=== PATIENT | male | born 1960 | race Caucasian/White ===

== ENCOUNTER 2016-11-17 06:48 | Day surgery (SDC) | payer BC ==
[2016-11-15 15:59] VITALS: BMI 26.7
[2016-11-17] MEDS ORDERED: LACTATED RINGERS 1,000 ML IV ONE (07:07)
[2016-11-17 07:12] VITALS: RESP 16; TEMP 97.1
[2016-11-17] MEDS ORDERED: LACTATED RINGERS 1,000 ML IV SCH (07:13)
[2016-11-17 07:20] LABS: Glucose,Whole Blood 122 mg/dL (75-99)
[2016-11-17] MEDS ORDERED: PROPOFOL 10 MG/ML 20 ML VIAL IV ONE (07:35)
[2016-11-17] MEDS ORDERED: LIDOCAINE 1% INJ 10MG/ML (20 ML MDV) ONE (07:35)
--- NOTE | 2016-11-17 08:08 | P.PCN ---
Date of Procedure: 11/17/16 Procedure(s) Performed: BRIEF HISTORY: Patient is a 56-year-old pleasant white male, scheduled for an elective colonoscopy as a part of screening for colorectal neoplasia. PROCEDURE PERFORMED: Colonoscopy with biopsy. PREOPERATIVE DIAGNOSIS: Screening for colon cancer. IV sedation per Anesthesia. PROCEDURE: After informed consent was obtained, the patient, was brought into the endoscopy unit. IV conscious sedation was administered by Anesthesia under continuous monitoring. Initially the Olympus CF-160 flexible video colonoscope was then inserted in the rectum, gradually advanced into the cecum without any difficulty. Careful examination was performed as the scope was gradually being withdrawn. Ileocecal valve and the appendiceal orifice were visualized and appeared normal. Prep was excellent. Mucosa of the cecum, ascending colon, transverse colon, descending colon, sigmoid colon, and rectum appeared normal. In the rectum there were 2 polyps measuring 5-6 cm in size both of which were removed by biopsy. Retroflexion was performed in the rectum and no lesions were seen. The patient tolerated the procedure well. IMPRESSION: 2 polyps in the rectum measuring between 5-6 cm in size, status post removal by biopsy. Rest of the colon appeared normal. RECOMMENDATIONS: Findings of this examination were discussed with the patient as well as his family. He was advised to follow with the biopsy results. If the biopsy shows a tubular adenoma he can have a repeat colonoscopy in 5 years.
[2016-11-17 08:25] VITALS: BP 135/68; PULSE 62
== END 2016-11-17 09:14 | disposition home or self-care (01) ==
LOC: ORWHC2ENDO 06:48
PROVIDERS: ATTEND Internal Medicine Gastroenterology
DX: Z12.11 Encounter for screening for malignant neoplasm of colon (principal); D12.8 Benign neoplasm of rectum; E11.9 Type 2 diabetes mellitus without complications; Z79.899 Other long term (current) drug therapy
CPT/HCPCS: 88305; 45380; J2001; J2704; 99153

== ENCOUNTER → 2021-08-11 | Outpatient (CLI) | payer BC ==
--- NOTE | 2021-08-11 18:10 | XR ---
EXAMINATION TYPE: XR lumbar spine 3V DATE OF EXAM: 08/11/2021 Comparison: None Clinical History: 60-year-old male LBP DDD Findings: 5 lumbar type vertebral bodies. Mild degenerative disc disease lower lumbar spine with endplate spond ylosis and disc bulging. Vertebral body heights are preserved and alignment is maintained. Some strai ghtening of the normal lumbar lordosis. Impression: 1. Straightening of the normal lumbar lordosis could be positional or due to muscle spasm. 2. Mild degenerative disc disease lower lumbar spine. 3. No vertebral compression collapse.
== END | disposition home or self-care (01) ==
LOC: RADXRMAIN 13:04
PROVIDERS: ATTEND Psychiatry & Neurology Clinical Neurophysiology
DX: M51.36 Other intervertebral disc degeneration, lumbar region (principal)
CPT/HCPCS: 72100

== ENCOUNTER → 2022-02-28 | Outpatient (CLI) | payer BC ==
--- NOTE | 2022-03-01 01:45 | MR ---
EXAMINATION TYPE: MR brain wo/w con DATE OF EXAM: 02/28/2022 COMPARISON: None HISTORY: Weakness. Mini stroke. CONTRAST: Standard multiplanar, multisequence MRI departmental protocol images were obtained without contrast a nd with intravenous gadolinium contrast. FINDINGS: There is some cerebral cortical atrophy. There is no mass effect or midline shift. There is no sign o f intracranial hemorrhage. The diffusion images show no sign of an acute infarct. There is mild thinn ing of the corpus callosum. There is a wedge-shaped area of increased signal in the left frontal lobe that measures 3 cm on the T2 and FLAIR images. There is no pathologic enhancement. There is normal e nhancement of the venous sinuses. Sella turcica appears normal. There is no evidence of orbital mass. There are a few scattered small w richard matter high signal foci in both cerebral hemispheres that measure up to 4 mm. Total number is ap proximately 15. Calvarium appears intact. IMPRESSION: Left frontal lobe white matter and thomas matter signal changes consistent with an old infarct. There i s encephalomalacia left frontal lobe. Scattered white matter foci could relate to some microvascular ischemia. No evidence of an acute infa rct.
--- NOTE | 2022-03-01 07:44 | US ---
EXAMINATION TYPE: US carotid duplex BILAT DATE OF EXAM: 02/28/2022 COMPARISON: NONE CLINICAL HISTORY: I63.9 Cerebral infarction, unspecified. Patient states he had an episode of left ar m numbness. EXAM MEASUREMENTS: RIGHT: Peak Systolic Velocity (PSV) cm/sec ----- Right CCA: 101.0 ----- Right ICA: 111.0 ----- Right ECA: 158.0 ICA/CCA ratio: 1.1 RIGHT: End Diastole cm/sec ----- Right CCA: 23.4 ----- Right ICA: 13.1 ----- Right ECA: 20.3 LEFT: Peak Systolic Velocity (PSV) cm/sec ----- Left CCA: 89.0 ----- Left ICA: 107.0 ----- Left ECA: 140.0 ICA/CCA ratio: 1.2 LEFT: End Diastole cm/sec ----- Left CCA: 26.0 ----- Left ICA: 27.9 ----- Left ECA: 16.2 VERTEBRALS (direction of flow): Right Vertebral: Antegrade Left Vertebral: Antegrade Rhythm: Arrhythmia No plaque or significant stenosis. Elevated bilateral ECA velocities. IMPRESSION: No evidence for hemodynamically significant stenosis. Criteria for Assigning % of Stenosis / Diameter reduction (Estimation based on the indirect measurements of the internal carotid artery velocities (ICA PSV). 1. Normal (no stenosis)=ICA PSV < 125 cm/s: ratio < 2.0: ICA EDV<40 cm/s. 2. Less than 50% stenosis=ICA PSV < 125 cm/s: ratio < 2.0: ICA EDV<40 cm/s. 3. 50 to 69% stenosis=ICA PSV of 125 to 230 cm/s: ration 2.0 ? 4.0: ICA EDV 40-100 cm/s. 4. Greater than 70% stenosis to near occlusion= ICA PSV > 230 cm/s: ratio > 4.0: ICA EDV > 100 cm/s. 5. Near occlusion= ICA PSV velocities may be low or undetectable: variable ratio and ICA EDV. 6. Total occlusion=unable to detect flow.
--- NOTE | 2022-03-01 09:51 | CA ---
Transthoracic Echo Report Name: Stan Dalal Age: 61 Gender: M : 1960 Exam Date: 02/28/2022 14:56 Exam Location: [facility] Ht (in): 69 Wt (lb): 210 Ordering Physician: Nelda Abdi MD Attending/Referring Phys: [employer] Janet Paiz RDCS Procedure CPT: Indications: 163.9 Cardiac Hx: TIA Technical Quality: Good Contrast 1: N/A Total Dose (mL): Contrast 2: Total Dose (mL): MEASUREMENTS (Male / Female) Normal Values 2D ECHO LV Diastolic Diameter PLAX 5.4 cm 4.2 - 5.9 / 3.9 - 5.3 cm LV Systolic Diameter PLAX 4.2 cm IVS Diastolic Thickness 1.2 cm 0.6 - 1.0 / 0.6 - 0.9 cm LVPW Diastolic Thickness 1.3 cm 0.6 - 1.0 / 0.6 - 0.9 cm LV Relative Wall Thickness 0.5 RV Internal Dim ED PLAX 2.6 cm M-MODE Aortic Root Diameter MM 3.5 cm LA Systolic Diameter MM 4.5 cm LA Ao Ratio MM 1.3 MV E Point Septal Separation 0.4 cm AV Cusp Separation MM 2.1 cm DOPPLER MV Area PHT 3.9 cm Mitral E Point Velocity 44.8 cm/s Mitral A Point Velocity 89.4 cm/s Mitral E to A Ratio 0.5 MV Deceleration Time 196.2 ms MV E' Velocity 4.5 cm/s Mitral E to MV E' Ratio 10.0 TR Peak Velocity 146.5 cm/s TR Peak Gradient 8.6 mmHg Right Ventricular Systolic Press 13.6 mmHg FINDINGS Left Ventricle Mildly increased septal wall thickness. . Normal Left ventricular size, wall thickness, systolic function with no obvious regional wall motion abnormalities. Normal Left ventricular diastolic filling pattern EF 50-55% Right Ventricle Normal right ventricular size and function. Right Atrium Normal right atrial size. Left Atrium Mild left atrial dilatation. Mitral Valve Mild mitral regurgitation. Aortic Valve Trace aortic regurgitation Tricuspid Valve Mild tricuspid regurgitation. Pulmonic Valve Structurally normal pulmonic valve. Pericardium Normal pericardium. Aorta Normal aortic root dimension. CONCLUSIONS #1. Mild septal thickness of the left ventricle. LV function is preserved without any regional wall motion. Pulmonic disease. #2. Mild mitral and trace aortic regurgitation and mild tricuspid regurgitation. #3. No pericardial effusion. Previewed by: Dr. Juliet Shepherd MD (Electronically Signed) Final Date: 01 March 2022 09:49
== END | disposition home or self-care (01) ==
LOC: RADECHMAIN 14:39
PROVIDERS: ATTEND Psychiatry & Neurology Clinical Neurophysiology
DX: G93.89 Other specified disorders of brain (principal); R90.89 Other abnormal findings on diagnostic imaging of central nervous system; I08.3 Combined rheumatic disorders of mitral, aortic and tricuspid valves
CPT/HCPCS: 93306; 93880; 70553; A9585

== ENCOUNTER → 2022-02-28 | Outpatient (CLI) | payer BC | END | disposition home or self-care (01) | LOC: RADMRIMAIN 14:38 | PROVIDERS: ATTEND Psychiatry & Neurology Clinical Neurophysiology | DX: Z53.9 Procedure and treatment not carried out, unspecified reason (principal) ==

== ENCOUNTER → 2022-04-24 | Outpatient (CLI) | payer BC ==
--- NOTE | 2022-04-24 16:35 | CT ---
EXAMINATION TYPE: CT brain wo con DATE OF EXAM: 04/24/2022 COMPARISON: MRI dated 02/28/2022 HISTORY: F/U MINI STROKE CT DLP: 1248 mGycm Automated exposure control for dose reduction was used. TECHNIQUE: CT scan of the brain is performed without IV contrast administration. FINDINGS: Left frontal cortical and subcortical area of encephalomalacia likely representing sequela of previou s infarction or trauma. Surrounding gliotic changes. No acute intracranial hemorrhage. No gross acute cortical infarct. No midline shift, herniation or ve ntriculomegaly. Unremarkable basal cisterns, sella and CP angles. No gross space-occupying lesion, vasogenic edema or mass effect. Unremarkable orbits. Clear visualized paranasal sinuses and mastoid air cells. Unremarkable calvarial bones. IMPRESSION: Stable left frontal area of encephalomalacia and surrounding gliotic changes. No acute intracranial h emorrhage or gross acute cortical infarct. No new mass effect or gross space-occupying lesion.
== END | disposition home or self-care (01) ==
LOC: RADCTMAIN 15:40
PROVIDERS: ATTEND Nurse Practitioner Family
DX: G93.89 Other specified disorders of brain (principal)
CPT/HCPCS: 70450

== ENCOUNTER 2023-04-23 07:48 | Observation (INO) | payer BC ==
[2023-04-23] MEDS ORDERED: SODIUM CHLORIDE 0.9% 1,000 ML IV ONE ×2 (08:06→09:25)
--- NOTE | 2023-04-23 08:22 | ED ---
Altered Mental Status HPI - General Chief Complaint: Altered Mental Status Stated Complaint: hypotension, AMS Source: EMS Mode of arrival: EMS Limitations: altered mental status - History of Present Illness Initial Comments: 62-year-old male with past medical history of CVA and left-sided hemiparesis who presents to the emergency department for hypotension and altered mental status. Staff states that the patient is usually very aggressive with them. They awoke the patient this morning and he seemed pleasant. They checked his vital signs upon the patient have a blood pressure of 60/30. There are no lateralizing deficits. Patient transported without any complaint. is at bedside denies that the patient has had any issues. No reported bedsores. No fevers, chills or cough. No abdominal pain. No chest pain. Admits that he has been eating and drinking. No issues with urination. He does have incontinence. No other alleviating, precipitating or modifying factors - Related Data Home Medications Medication Instructions Recorded Confirmed ALPRAZolam [Xanax] 0.25 mg PO Q8H PRN 04/23/23 04/23/23 Acetaminophen [Tylenol 8 Hour] 1,300 mg PO Q4H PRN 04/23/23 04/23/23 Aspirin 81 mg PO DAILY@1700 04/23/23 04/23/23 Atorvastatin [Lipitor] 40 mg PO HS 04/23/23 04/23/23 Clopidogrel [Plavix] 75 mg PO DAILY@0800 04/23/23 04/23/23 DULoxetine HCL [Cymbalta] 60 mg PO DAILY@0800 04/23/23 04/23/23 Diclofenac Sodium Gel [Voltaren 1 applic TOPICAL TID@0800,1600,2100 04/23/23 04/23/23 Gel] Fruit & Vegetable Daily Cap 1 cap PO DAILY@0700 04/23/23 04/23/23 Gabapentin [Neurontin] 200 mg PO TID@0600,1400,2200 04/23/23 04/23/23 HYDROcodone/APAP 5-325MG [[place] 1 tab PO Q6H PRN 04/23/23 04/23/23 5-325] INSULIN LISPRO (HumaLOG) [humaLOG] 5 units SQ AC-TID 04/23/23 04/23/23 INSULIN LISPRO (HumaLOG) [humaLOG] See Protocol SQ ACHS 04/23/23 04/23/23 Insulin Detemir (Levemir) [Levemir] 10 units SQ BID@0800,1700 04/23/23 04/23/23 Ipratropium-Albuterol Nebulize 3 ml INHALATION RT-QID PRN 04/23/23 04/23/23 [Duoneb 0.5 mg-3 mg/3 ml Soln] Mag Hydrox/Al Hydrox/Simeth 30 ml PO Q6H PRN 04/23/23 04/23/23 [Maalox] Magnesium Hydroxide [Milk of 7,200 mg PO DAILY PRN 04/23/23 04/23/23 Magnesia Concentrate] Melatonin 3 mg PO HS 04/23/23 04/23/23 Melatonin 5 mg PO HS 04/23/23 04/23/23 Na Phos,M-B/Na Phos,Di-Ba [Fleet 133 ml RECTAL DAILY PRN 04/23/23 04/23/23 Adult] Natural Tears 2 drops BOTH EYES Q12H PRN 04/23/23 04/23/23 Pantoprazole [Protonix] 40 mg PO DAILY@0804/23/23 04/23/23 Sennosides [Senokot] 8.6 mg PO BID@0800,169904/23/23 04/23/23 Tamsulosin [Flomax] 0.4 mg PO HS 04/23/23 04/23/23 amLODIPine [Norvasc] 5 mg PO DAILY@0804/23/23 04/23/23 bisacodyL [Dulcolax] 10 mg RECTAL DAILY PRN 04/23/23 04/23/23 carvediloL [Coreg] 12.5 mg PO BID@0800,0 04/23/23 04/23/23 guaiFENesin [guaiFENesin Oral 200 mg PO Q4H PRN 04/23/23 04/23/23 Solution] levETIRAcetam [Keppra] 500 mg PO BID@0800,0 04/23/23 04/23/23 lisinopriL [Zestril] 10 mg PO DAILY@1700 04/23/23 04/23/23 polyethylene glycoL 3350 [Miralax] 17 gm PO DAILY@0800 04/23/23 04/23/23 Allergies Allergy/AdvReac Type Severity Reaction Status Date / Time No Known Allergies Allergy Verified 04/23/23 08:30 Review of Systems ROS Statement: Those systems with pertinent positive or pertinent negative responses have been documented in the HPI. ROS Other: All systems not noted in ROS Statement are negative. Past Medical History Past Medical History: CVA/TIA, Diabetes Mellitus, Liver Disease Additional Past Medical History / Comment(s): hx. Hep. C History of Any Multi-Drug Resistant Organisms: None Reported Past Surgical History: Orthopedic Surgery, Tonsillectomy Additional Past Surgical History / Comment(s): bone spur removed from shoulde r,colonoscopy Past Anesthesia/Blood Transfusion Reactions: No Reported Reaction Past Alcohol Use History: None Reported Past Drug Use History: None Reported - Past Family History Mother Family Medical History: Cancer General Exam Limitations: altered mental status Course Vital Signs 04/23/23 04/23/23 04/23/23 07:50 08:57 09:36 Temperature 98.2 F Pulse Rate 56 L 55 L 55 L Respiratory 18 18 18 Rate Blood Pressure 83/57 88/51 102/65 O2 Sat by Pulse 98 100 95 Oximetry 04/23/23 11:11 Temperature Pulse Rate 56 L Respiratory Rate Blood Pressure 97/68 O2 Sat by Pulse 95 Oximetry Medical Decision Making - Medical Decision Making Was pt. sent in by a medical professional or institution ([facility], OCCUPATIONAL THERAPY TEACHER, urgent care, hospital, or fdc...) When possible be specific @ -[No] Did you speak to anyone other than the patient for history (EMS, parent, family, police, friend...)? What history was obtained from this source @ -[No] Did you review nursing and triage notes (agree or disagree)? Why? @ -[I reviewed and agree with nursing and triage notes] Were old charts reviewed (outside hosp., previous admission, EMS record, old EKG, old radiological studies, urgent care reports/EKG's, fdc records)? Report findings @ -[No old charts were reviewed] Differential Diagnosis (chest pain, altered mental status, abdominal pain women, abdominal pain men, vaginal bleeding, weakness, fever, dyspnea, syncope, headac he, dizziness, GI bleed, back pain, seizure, CVA, palpatations, mental health, musculoskeletal)? @ -[not applicable] EKG interpreted by me (3pts min.). @ -Yes and demonstrates sinus bradycardia with a rate of 53. WV interval 203. QRS 98. QTC of 405. No acute ST segment elevations or depressions X-rays interpreted by me (1pt min.). @ -[None done] CT interpreted by me (1pt min.). @ -[None done] U/S interpreted by me (1pt. min.). @ -[None done] What testing was considered but not performed or refused? (CT, X-rays, U/S, labs)? Why? @ -[None] What meds were considered but not given or refused? Why? @ -[None] Did you discuss the management of the patient with other professionals (professionals i.e. , PA, OCCUPATIONAL THERAPY TEACHER, lab, RT, psych nurse, social worker delinquency prevention, door to door selling agent, teacher, bsa officer, patient case coordinator)? Give summary @ -[No] Was smoking cessation discussed for >3mins.? @ -[No] Was critical care preformed (if so, how long)? @ -[No] Were there social determinants of health that impacted care today? How? (Homelessness, low income, unemployed, alcoholism, drug addiction, transportation, low edu. Level, literacy, decrease access to med. care, long-term, rehab)? @ -[No] Was there de-escalation of care discussed even if they declined (Discuss DNR or withdrawal of care, Hospice)? DNR status @ -[No] What co-morbidities impacted this encounter? (DM, HTN, Smoking, COPD, CAD, Cancer, CVA, ARF, Chemo, Hep., AIDS, mental health diagnosis, sleep apnea, morbid obesity)? @ -[None] Was patient admitted / discharged? Hospital course, mention meds given and route, prescriptions, significant lab abnormalities, going to OR and other pertinent info. @ -Upon arrival patient is placed in a trauma 2. There are history and physical exam was performed. Patient is given a 2 L bolus of normal saline and does have improvement in his blood pressure. Laboratory studies are conducted and reviewed. Creatinine is 2.3. Patient has normal kidney function at baseline of 1. He is started on 130 mL of normal saline per hour. Chest x-ray demonstrates no evidence for acute process. CT of the brain demonstrates multiple old-appearing infarcts. Indeterminate age subcortical white matter change posterior right frontal lobe. Renal ultrasound is ordered. Recommended admission. Spoke with Dr. Dick who agreed to admit the patient. He is currently awaiting a bed on the floor in stable condition Undiagnosed new problem with uncertain prognosis? @ -[No] Drug Therapy requiring intensive monitoring for toxicity (Heparin, Nitro, Insulin, Cardizem)? @ -[No] Were any procedures done? @ -[No] Diagnosis/symptom? @ -[default] Acute, or Chronic, or Acute on Chronic? @ -[default] Uncomplicated (without systemic symptoms) or Complicated (systemic symptoms)? @ -[default] Side effects of treatment? @ -[No] Exacerbation, Progression, or Severe Exacerbation? @ -[No] Poses a threat to life or bodily function? How? (Chest pain, [place], ND, pneumonia, PE, COPD, DKA, ARF, appy, cholecystitis, CVA, Diverticulitis, Homicidal, Suicidal, threat to staff... and all critical care pts) @ -[No] - Lab Data Result diagrams: 04/23/23 08:09 04/23/23 08:09 Lab Results 04/23/23 04/23/23 04/23/23 Range/Units 08:09 08:09 08:09 WBC 6.1 (3.8-10.6) k/uL RBC 4.31 (4.30-5.90) m/uL Hgb 13.0 (13.0-17.5) gm/dL Hct 38.9 L (39.0-53.0) % MCV 90.3 (80.0-100.0) fL MCH 30.1 (25.0-35.0) pg MCHC 33.4 (31.0-37.0) g/dL RDW 13.5 (11.5-15.5) % Plt Count 123 L (150-450) k/uL MPV 7.8 Neutrophils % 67 % Lymphocytes % 22 % Monocytes % 7 % Eosinophils % 2 % Basophils % 0 % Neutrophils # 4.1 (1.3-7.7) k/uL Lymphocytes # 1.4 (1.0-4.8) k/uL Monocytes # 0.5 (0-1.0) k/uL Eosinophils # 0.1 (0-0.7) k/uL Basophils # 0.0 (0-0.2) k/uL PT 11.6 (9.0-12.0) sec INR 1.1 (<1.2) APTT 21.0 L (22.0-30.0) sec Sodium 137 (137-145) mmol/L Potassium 4.6 (3.5-5.1) mmol/L Chloride 105 (98-107) mmol/L Carbon Dioxide 24 (22-30) mmol/L Anion Gap 8 mmol/L BUN 33 H (9-20) mg/dL Creatinine 2.39 H (0.66-1.25) mg/dL Est GFR (CKD-EPI)AfAm 32 (>60 ml/min/1.73 sqM) Est GFR (CKD-EPI)NonAf 28 (>60 ml/min/1.73 sqM) Glucose 121 H (74-99) mg/dL Osmolality (280-301) mosm/kg Plasma Lactic Acid Felix (0.7-2.0) mmol/L Calcium 8.4 (8.4-10.2) mg/dL Total Bilirubin 0.7 (0.2-1.3) mg/dL AST 20 (17-59) U/L ALT 21 (4-49) U/L Alkaline Phosphatase 66 (38-126) U/L Troponin I (0.000-0.034) ng/mL Total Protein 5.9 L (6.3-8.2) g/dL Albumin 3.3 L (3.5-5.0) g/dL Urine Color Urine Appearance (Clear) Urine pH (5.0-8.0) Ur Specific [place] (1.001-1.035) Urine Protein (Negative) Urine Glucose (UA) (Negative) Urine Ketones (Negative) Urine Blood (Negative) Urine Nitrite (Negative) Urine Bilirubin (Negative) Urine Urobilinogen (<2.0) mg/dL Ur Leukocyte Esterase (Negative) Urine RBC (0-5) /hpf Urine WBC (0-5) /hpf Ur Squamous Epith Cells (0-4) /hpf Urine Bacteria (None) /hpf Urine Mucus (None) /hpf 04/23/23 04/23/23 04/23/23 Range/Units 08:09 08:09 08:09 WBC (3.8-10.6) k/uL RBC (4.30-5.90) m/uL Hgb (13.0-17.5) gm/dL Hct (39.0-53.0) % MCV (80.0-100.0) fL MCH (25.0-35.0) pg MCHC (31.0-37.0) g/dL RDW (11.5-15.5) % Plt Count (150-450) k/uL MPV Neutrophils % % Lymphocytes % % Monocytes % % Eosinophils % % Basophils % % Neutrophils # (1.3-7.7) k/uL Lymphocytes # (1.0-4.8) k/uL Monocytes # (0-1.0) k/uL Eosinophils # (0-0.7) k/uL Basophils # (0-0.2) k/uL PT (9.0-12.0) sec INR (<1.2) APTT (22.0-30.0) sec Sodium (137-145) mmol/L Potassium (3.5-5.1) mmol/L Chloride (98-107) mmol/L Carbon Dioxide (22-30) mmol/L Anion Gap mmol/L BUN (9-20) mg/dL Creatinine (0.66-1.25) mg/dL Est GFR (CKD-EPI)AfAm (>60 ml/min/1.73 sqM) Est GFR (CKD-EPI)NonAf (>60 ml/min/1.73 sqM) Glucose (74-99) mg/dL Osmolality (280-301) mosm/kg Plasma Lactic Acid Felix 1.2 (0.7-2.0) mmol/L Calcium (8.4-10.2) mg/dL Total Bilirubin (0.2-1.3) mg/dL AST (17-59) U/L ALT (4-49) U/L Alkaline Phosphatase (38-126) U/L Troponin I <0.012 (0.000-0.034) ng/mL Total Protein (6.3-8.2) g/dL Albumin (3.5-5.0) g/dL Urine Color Yellow Urine Appearance Cloudy (Clear) Urine pH 5.0 (5.0-8.0) Ur Specific [place] 1.018 (1.001-1.035) Urine Protein Trace H (Negative) Urine Glucose (UA) Negative (Negative) Urine Ketones Negative (Negative) Urine Blood Negative (Negative) Urine Nitrite Negative (Negative) Urine Bilirubin Negative (Negative) Urine Urobilinogen 2.0 (<2.0) mg/dL Ur Leukocyte Esterase Small H (Negative) Urine RBC <1 (0-5) /hpf Urine WBC 2 (0-5) /hpf Ur Squamous Epith Cells <1 (0-4) /hpf Urine Bacteria Few H (None) /hpf Urine Mucus Rare H (None) /hpf 04/23/23 Range/Units 08:09 WBC (3.8-10.6) k/uL RBC (4.30-5.90) m/uL Hgb (13.0-17.5) gm/dL Hct (39.0-53.0) % MCV (80.0-100.0) fL MCH (25.0-35.0) pg MCHC (31.0-37.0) g/dL RDW (11.5-15.5) % Plt Count (150-450) k/uL MPV Neutrophils % % Lymphocytes % % Monocytes % % Eosinophils % % Basophils % % Neutrophils # (1.3-7.7) k/uL Lymphocytes # (1.0-4.8) k/uL Monocytes # (0-1.0) k/uL Eosinophils # (0-0.7) k/uL Basophils # (0-0.2) k/uL PT (9.0-12.0) sec INR (<1.2) APTT (22.0-30.0) sec Sodium (137-145) mmol/L Potassium (3.5-5.1) mmol/L Chloride (98-107) mmol/L Carbon Dioxide (22-30) mmol/L Anion Gap mmol/L BUN (9-20) mg/dL Creatinine (0.66-1.25) mg/dL Est GFR (CKD-EPI)AfAm (>60 ml/min/1.73 sqM) Est GFR (CKD-EPI)NonAf (>60 ml/min/1.73 sqM) Glucose (74-99) mg/dL Osmolality 295 (280-301) mosm/kg Plasma Lactic Acid Felix (0.7-2.0) mmol/L Calcium (8.4-10.2) mg/dL Total Bilirubin (0.2-1.3) mg/dL AST (17-59) U/L ALT (4-49) U/L Alkaline Phosphatase (38-126) U/L Troponin I (0.000-0.034) ng/mL Total Protein (6.3-8.2) g/dL Albumin (3.5-5.0) g/dL Urine Color Urine Appearance (Clear) Urine pH (5.0-8.0) Ur Specific [place] (1.001-1.035) Urine Protein (Negative) Urine Glucose (UA) (Negative) Urine Ketones (Negative) Urine Blood (Negative) Urine Nitrite (Negative) Urine Bilirubin (Negative) Urine Urobilinogen (<2.0) mg/dL Ur Leukocyte Esterase (Negative) Urine RBC (0-5) /hpf Urine WBC (0-5) /hpf Ur Squamous Epith Cells (0-4) /hpf Urine Bacteria (None) /hpf Urine Mucus (None) /hpf Disposition Clinical Impression: XIAO (acute kidney injury), Hypotension Disposition: ADMITTED IP TO THIS [facility] Condition: Stable Is patient prescribed a controlled substance at d/c from ED?: No Time of Disposition: 09:50 Decision to Admit Reason: Admit from EC Decision Date: 04/23/23 Decision Time: 09:51
[2023-04-23 08:26] LABS: Basophils % (A) 0 %; Eosinophils # (A) 0.1 k/uL (0-0.7); Eosinophils % (A) 2 %; HCT 38.9 % (39.0-53.0); Lymphocytes # (A) 1.4 k/uL (1.0-4.8); Lymphocytes % (A) 22 %; MCH 30.1 pg (25.0-35.0); MCHC 33.4 g/dL (31.0-37.0); MCV 90.3 fL (80.0-100.0); Mean Platelet Volume 7.8; Monocytes # (A) 0.5 k/uL (0-1.0); Monocytes % (A) 7 %; Neutrophils # (A) 4.1 k/uL (1.3-7.7); Neutrophils % (A) 67 %; Platelet Count 123 k/uL (150-450); RBC 4.31 m/uL (4.30-5.90); RDW 13.5 % (11.5-15.5); WBC 6.1 k/uL (3.8-10.6)
--- NOTE | 2023-04-23 08:28 | XR ---
EXAMINATION TYPE: XR chest 2V DATE OF EXAM: 04/23/2023 COMPARISON: 07/08/22 HISTORY: Shortness of breath TECHNIQUE: Frontal and lateral views of the chest are obtained. FINDINGS: Scattered senescent parenchymal changes noted. No evidence for infiltrate. No evidence for atelectasis. Heart size is stable. Mediastinal structures are stable and grossly unremarkable. No evidence for hilar prominence. Degenerative changes dorsal spine. IMPRESSION: 1. No evidence for acute pulmonary disease.
--- NOTE | 2023-04-23 08:38 | CT ---
EXAMINATION TYPE: CT brain wo con DATE OF EXAM: 04/23/2023 COMPARISON: 07/08/2022 INDICATION: ams DLP: 1231.4 mGycm, Automated exposure control for dose reduction was used. CONTRAST: None CT of the brain is performed utilizing 3 mm thick sections through the posterior fossa and 3 mm thick sections through the remaining calvarium. Study is performed within 24 hours of arrival to the hosp ital. No abnormal hyperdensity is present to suggest an acute intracranial hemorrhage. No mass lesion is evident. There is subcortical hypodensity within the posterior right frontal lobe, series 2032, image 45. This is indeterminate in age. There are several old appearing infarcts including along the medial left frontal lobe near the vertex , the right parietal occipital watershed region left inferior frontal lobe. Ex vacuo effect is eviden t on the lateral ventricles. Ventricles and sulci are prominent for the patient age. Paranasal sinuses and mastoid air cells within the [id number] are clear. IMPRESSIONS: 1. Multiple bilateral old appearing infarcts. These however were not evident on the comparison stud y of 07/08/2022. 2. Indeterminant age subcortical white matter change posterior right frontal lobe. 3. Consider follow-up MRI.
[2023-04-23 08:52] LABS: ALT 21 U/L (4-49); AST 20 U/L (17-59); African American GFR (CKD) 32 (>60 ml/min/1.73 sqM); Albumin 3.3 g/dL (3.5-5.0); Alkaline Phosphatase 66 U/L (38-126); Anion Gap 8 mmol/L; Blood Urea Nitrogen 33 mg/dL (9-20); Calcium 8.4 mg/dL (8.4-10.2); Carbon Dioxide 24 mmol/L (22-30); Chloride 105 mmol/L (98-107); Glucose 121 mg/dL (74-99); Non-African American GFR(CKD) 28 (>60 ml/min/1.73 sqM); Potassium 4.6 mmol/L (3.5-5.1); Sodium 137 mmol/L (137-145); Total Bilirubin 0.7 mg/dL (0.2-1.3); Total Protein 5.9 g/dL (6.3-8.2)
[2023-04-23 08:54] LABS: INR 1.1 (<1.2); Prothrombin Time 11.6 sec (9.0-12.0)
[2023-04-23 09:00] LABS: Appearance,Urine Cloudy (Clear); Bacteria,Urine Few /hpf; Bilirubin,Urine Negative (Negative); Blood,Urine Negative (Negative); Color,Urine Yellow; Glucose,Urine (UA) Negative (Negative); Ketones,Urine Negative (Negative); Leukocyte Esterase,Urine Small (Negative); Mucus,Urine Rare /hpf; Nitrite,Urine Negative (Negative); Protein,Urine Trace (Negative); RBC,Urine <1 /hpf (0-5); Specific Gravity,Urine 1.018 (1.001-1.035); Squamous Epithelial Cell,Urine <1 /hpf (0-4); WBC,Urine 2 /hpf (0-5)
[2023-04-23] MEDS ORDERED: NALOXONE 0.4 MG/ML 1 ML VIAL IV PRN (09:51)
[2023-04-23] MEDS ORDERED: IPRATROPIUM-ALBUTEROL 3 ML NEB INHALATION PRN (09:55)
[2023-04-23] MEDS: SODIUM CHLORIDE 0.9% 1,000 ML IV SCH ×2 (10:54→19:20)
--- NOTE | 2023-04-23 10:54 | US ---
EXAMINATION TYPE: US renals and bladder DATE OF EXAM: 04/23/2023 COMPARISON: NONE CLINICAL INDICATION: Male, 62 years old with history of leodan; hypotensive today, leodan, patient unrespon sive during exam EXAM MEASUREMENTS: Right Kidney: 10.8 x 5.3 x 6.3 cm Left Kidney: 10.2 x 4.5 x 6.5 cm Right Kidney: No hydronephrosis or masses seen Left Kidney: No hydronephrosis or masses seen Bladder: 2.0 x 1.5cm echogenic posterior area may represent normal anatomy versus other etiology There is no evidence for hydronephrosis at this point in time. No nephrolithiasis is seen. No harjeet s are identified. Bilateral ureteral jets are seen. IMPRESSION: Nonspecific echogenic focus posterior dependent urinary bladder.
--- NOTE | 2023-04-23 11:42 | P.HPIM ---
History of Present Illness 62-year-old male was sent in because of hypotension. is at bedside. Patient is on multivitamin his medications patient/ is unsure whether he was started on any new pressure medications. Patient is also found to be in acute renal failure with serum creatinine going up to 2.39 because of which patient is being admitted with IV fluids. Patient appears to be alert oriented 3 patient had history of recent stroke with hemorrhagic conversion with chronic weakness in the left side and hemiparesis on the left side. REVIEW OF SYSTEMS: CONSTITUTIONAL: No fever, no malaise, no fatigue. HEENT: No recent visual problems or hearing problems. Denied any sore throat. CARDIOVASCULAR: No chest pain, orthopnea, PND, no palpitations, no syncope. PULMONARY: No shortness of breath, no cough, no hemoptysis. GASTROINTESTINAL: No diarrhea, no nausea, no vomiting, no abdominal pain. NEUROLOGICAL: No headachesHEMATOLOGICAL: Denies any bleeding or petechiae. GENITOURINARY: Denies any burning micturition, frequency, or urgency. MUSCULOSKELETAL/RHEUMATOLOGICAL: Denies any joint pain, swelling, or any muscle pain. ENDOCRINE: Denies any polyuria or polydipsia. The rest of the 14-point review of systems is negative. PHYSICAL EXAMINATION: GENERAL: The patient is alert and oriented x3, not in any acute distress. Well developed, well nourished. HEENT: Pupils are round and equally reacting to light. EOMI. No scleral icterus. No conjunctival pallor. Normocephalic, atraumatic. No pharyngeal erythema. No thyromegaly. CARDIOVASCULAR: S1 and S2 present. No murmurs, rubs, or gallops. PULMONARY: Chest is clear to auscultation, no wheezing or crackles. ABDOMEN: Soft, nontender, nondistended, normoactive bowel sounds. No palpable organomegaly. MUSCULOSKELETAL: No joint swelling or deformity. EXTREMITIES: No cyanosis, clubbing, or pedal edema. NEUROLOGICAL: Gross neurological examination did not reveal any new focal deficits. Hemiparesis of a left-sided SKIN: No rashes. Assessment and plan -Hypotension probably secondary to multiple antibodies medications all of which will be held at this time. Patient is also on ZEUS inhibitor. -Acute renal failure probably acute tubular necrosis secondary to hypotension holding of aneurysm medications patient was started on IV fluids -Recent CVA cerebral vascular accident initially ischemic followed by hemorrhagic conversion, supportive care, patient is on prophylactic seizure medications -Type 2 diabetes mellitus: Sliding scale for now along with oral medications as patient is unable to deferred insulin at this time. -Hypertension patient is presently hypotensive Benign prostatic hypertrophy -Diabetic peripheral neuropathy -Depression -Hyperlipidemia DVT prophylaxis: Subcutaneous heparin Past Medical History Past Medical History: CVA/TIA, Diabetes Mellitus, Liver Disease Additional Past Medical History / Comment(s): hx. Hep. C History of Any Multi-Drug Resistant Organisms: None Reported Past Surgical History: Orthopedic Surgery, Tonsillectomy Additional Past Surgical History / Comment(s): bone spur removed from shoulder,colonoscopy Past Anesthesia/Blood Transfusion Reactions: No Reported Reaction Past Alcohol Use History: None Reported Past Drug Use History: None Reported - Past Family History Mother Family Medical History: Cancer Medications and Allergies Home Medications Medication Instructions Recorded Confirmed Type ALPRAZolam [Xanax] 0.25 mg PO Q8H PRN 04/23/23 04/23/23 History Acetaminophen [Tylenol 8 Hour] 1,300 mg PO Q4H PRN 04/23/23 04/23/23 History Aspirin 81 mg PO DAILY@1700 04/23/23 04/23/23 History Atorvastatin [Lipitor] 40 mg PO HS 04/23/23 04/23/23 History Clopidogrel [Plavix] 75 mg PO DAILY@0800 04/23/23 04/23/23 History DULoxetine HCL [Cymbalta] 60 mg PO DAILY@0800 04/23/23 04/23/23 History Diclofenac Sodium Gel [Voltaren 1 applic TOPICAL TID@0800,1600,2100 04/23/23 04/23/23 History Gel] Fruit & Vegetable Daily Cap 1 cap PO DAILY@0700 04/23/23 04/23/23 History Gabapentin [Neurontin] 200 mg PO TID@0600,1400,2200 04/23/23 04/23/23 History HYDROcodone/APAP 5-325MG [[place] 1 tab PO Q6H PRN 04/23/23 04/23/23 History 5-325] INSULIN LISPRO (HumaLOG) [humaLOG] 5 units SQ AC-TID 04/23/23 04/23/23 History INSULIN LISPRO (HumaLOG) [humaLOG] See Protocol SQ ACHS 04/23/23 04/23/23 History Insulin Detemir (Levemir) [Levemir] 10 units SQ BID@0800,1700 04/23/23 04/23/23 History Ipratropium-Albuterol Nebulize 3 ml INHALATION RT-QID PRN 04/23/23 04/23/23 History [Duoneb 0.5 mg-3 mg/3 ml Soln] Mag Hydrox/Al Hydrox/Simeth 30 ml PO Q6H PRN 04/23/23 04/23/23 History [Maalox] Magnesium Hydroxide [Milk of 7,200 mg PO DAILY PRN 04/23/23 04/23/23 History Magnesia Concentrate] Melatonin 3 mg PO HS 04/23/23 04/23/23 History Melatonin 5 mg PO 04/23/23 04/23/23 History Na Phos,M-B/Na Phos,Di-Ba [Fleet 133 ml RECTAL DAILY PRN 04/23/23 04/23/23 History Adult] Natural Tears 2 drops BOTH EYES Q12H PRN 04/23/23 04/23/23 History Pantoprazole [Protonix] 40 mg PO DAILY@0800 04/23/23 04/23/23 History Sennosides [Senokot] 8.6 mg PO BID@0800,0 04/23/23 04/23/23 History Tamsulosin [Flomax] 0.4 mg PO 04/23/23 04/23/23 History amLODIPine [Norvasc] 5 mg PO DAILY@0800 04/23/23 04/23/23 History bisacodyL [Dulcolax] 10 mg RECTAL DAILY PRN 04/23/23 04/23/23 History carvediloL [Coreg] 12.5 mg PO BID@0800,1700 04/23/23 04/23/23 History guaiFENesin [guaiFENesin Oral 200 mg PO Q4H PRN 04/23/23 04/23/23 History Solution] levETIRAcetam [Keppra] 500 mg PO BID@0800,1700 04/23/23 04/23/23 History lisinopriL [Zestril] 10 mg PO DAILY@1700 04/23/23 04/23/23 History polyethylene glycoL 3350 [Miralax] 17 gm PO DAILY@0800 04/23/23 04/23/23 History Allergies Allergy/AdvReac Type Severity Reaction Status Date / Time No Known Allergies Allergy Verified 04/23/23 08:30 Physical Exam Vitals: Vital Signs Temp Pulse Resp BP Pulse Ox 04/23/23 11:11 56 L 97/68 95 04/23/23 09:36 55 L 18 102/65 95 04/23/23 08:57 98.2 F 55 L 18 88/51 100 04/23/23 07:50 56 L 18 83/57 98 Intake and Output 04/22/23 04/23/23 04/23/23 22:59 06:59 14:59 Other: Weight 111.13 kg Results CBC & Chem 7: 04/23/23 08:09 04/23/23 08:09 Labs: Abnormal Lab Results - Last 24 Hours (Table) 04/23/23 04/23/23 04/23/23 Range/Units 08:09 08:09 08:09 Hct 38.9 L (39.0-53.0) % Plt Count 123 L (150-450) k/uL APTT 21.0 L (22.0-30.0) sec BUN 33 H (9-20) mg/dL Creatinine 2.39 H (0.66-1.25) mg/dL Glucose 121 H (74-99) mg/dL Total Protein 5.9 L (6.3-8.2) g/dL Albumin 3.3 L (3.5-5.0) g/dL Urine Protein (Negative) Ur Leukocyte Esterase (Negative) Urine Bacteria (None) /hpf Urine Mucus (None) /hpf 04/23/23 Range/Units 08:09 Hct (39.0-53.0) % Plt Count (150-450) k/uL APTT (22.0-30.0) sec BUN (9-20) mg/dL Creatinine (0.66-1.25) mg/dL Glucose (74-99) mg/dL Total Protein (6.3-8.2) g/dL Albumin (3.5-5.0) g/dL Urine Protein Trace H (Negative) Ur Leukocyte Esterase Small H (Negative) Urine Bacteria Few H (None) /hpf Urine Mucus Rare H (None) /hpf
[2023-04-23] MEDS ORDERED: INSULIN ASPART (NovoLOG) 100 UNIT/ML VIAL SQ SCH (12:30)
[2023-04-23 12:34] LABS: Glucose,Whole Blood 115 mg/dL (70-110)
[2023-04-23] MEDS: INSULIN ASPART (NovoLOG) 100 UNIT/ML VIAL SQ SCH ×4 (12:34→22:31)
[2023-04-23] MEDS ORDERED: GABAPENTIN 100 MG CAP PO SCH (14:00)
[2023-04-23] MEDS: HYDROcodone/APAP 5-325MG 1 EACH TAB PO PRN (14:24)
[2023-04-23] MEDS ORDERED: INSULIN DETEMIR (LEVEMIR) 100 UNIT/ML SYR SQ SCH (17:00)
[2023-04-23] MEDS ORDERED: ASPIRIN 81 MG PO SCH (17:00)
[2023-04-23] MEDS: HEPARIN SODIUM,PORCINE/PF 5,000 UNIT/0.5 ML SYRINGE SQ SCH ×2 (19:19→21:17)
[2023-04-23] MEDS: levETIRAcetam 500 MG TAB PO SCH (19:27)
[2023-04-23] MEDS ORDERED: ATORVASTATIN 40 MG TAB PO SCH (21:00)
[2023-04-23 21:40] LABS: Glucose,Whole Blood 295 mg/dL (70-110)
[2023-04-24 03:52] LABS: Creatinine,Urine Random 48.7 mg/dL
[2023-04-24] MEDS: SODIUM CHLORIDE 0.9% 1,000 ML IV SCH ×2 (05:33→16:06)
[2023-04-24 05:56] LABS: Glucose,Whole Blood 197 mg/dL (70-110)
[2023-04-24] MEDS: INSULIN ASPART (NovoLOG) 100 UNIT/ML VIAL SQ SCH ×2 (06:09→12:29)
[2023-04-24] MEDS ORDERED: CLOPIDOGREL 75 MG TAB PO SCH (08:00)
[2023-04-24] MEDS ORDERED: DULoxetine HCL 60 MG CAPSULE.DR PO SCH (08:00)
[2023-04-24] MEDS ORDERED: PANTOPRAZOLE 40 MG TABLET PO SCH (08:00)
[2023-04-24] MEDS: levETIRAcetam 500 MG TAB PO SCH (09:07)
[2023-04-24] MEDS: HEPARIN SODIUM,PORCINE/PF 5,000 UNIT/0.5 ML SYRINGE SQ SCH ×2 (09:08→16:06)
[2023-04-24] MEDS: HYDROcodone/APAP 5-325MG 1 EACH TAB PO PRN (09:26)
[2023-04-24] MEDS ORDERED: DAPAGLIFLOZIN PROPANEDIOL 10 MG TABLET PO SCH (09:45)
[2023-04-24 11:49] LABS: African American GFR (CKD) >90 (>60 ml/min/1.73 sqM); Anion Gap 7 mmol/L; Blood Urea Nitrogen 22 mg/dL (9-20); Calcium 8.7 mg/dL (8.4-10.2); Carbon Dioxide 27 mmol/L (22-30); Chloride 104 mmol/L (98-107); Glucose 141 mg/dL (74-99); Non-African American GFR(CKD) 83 (>60 ml/min/1.73 sqM); Potassium 4.9 mmol/L (3.5-5.1); Sodium 138 mmol/L (137-145)
[2023-04-24 11:59] LABS: Glucose,Whole Blood 139 mg/dL (70-110)
[2023-04-24] MEDS: DICLOFENAC SODIUM GEL 100 GM TUBE TOPICAL SCH ×2 (12:31→16:06)
--- NOTE | 2023-04-24 13:16 | P.DS ---
Providers Date of admission: 04/23/23 09:51 Attending physician: Jose Reyes Primary care physician: Bridger Castillo Hospital Course: Final Diagnosis -Hypotension probably secondary to multiple medications -Acute renal failure probably ATN secondary to hypotension -Recent CVA cerebral vascular accident initially ischemic followed by hemorrhagic conversion, supportive care, patient is on prophylactic seizure medications -Type 2 diabetes mellitus: Resume home medications -Hypertension patient is presently hypotensive which has improved -Benign prostatic hypertrophy -Diabetic peripheral neuropathy -Depression -Hyperlipidemia DVT prophylaxis: Subcutaneous heparin Full Code Discharge Disposition Patient is stable to return to [facility], blood pressure has improved and kidney function has normalized. Recommend to hold amlodipine on discharge as well as carvedilol, patients blood pressure is normo-tensive. Patient to repeat labs in 2 to 3 days. Hospital Course 62-year-old male was sent in because of hypotension from [facility]. Patient has medical history of BPH, depression, diabetes mellitus, had history of recent stroke with hemorrhagic conversion with chronic weakness in the left side and hemiparesis on the left side. Has been at [facility] for rehab. Patient is on multiple medications including carvediolol, amlodipine and lisinopril. Patient was found to have low blood pressure and sent in for evaluation. Creatinine on admission 2.39, patient was hydrated and medications were held and creatinine has improved and normalized today is 0.97. Patient is urinating without difficulty. Blood pressure has improved and now 120-140s systolic. Patient appears to be alert oriented 3 patient patient is denying any nausea, vomiting or diarrhea no abdominal pain. Patient denies shortness of breath no chest pain. Denies dizziness or lightheadedness. Patients lungs are clear S1 S2 auscultated abdomen is soft and nontender. Patient will be discharged back to [facility] with the above mentioned recommendations. Please see medication reconciliation for a list of current medication. Thank you for allowing us to participate in the care of this patient. The impression and plan of care has been dictated by Fabiola Jiménez, Nurse Practitioner as directed. Dr. Mayelin MD I have performed a history and physical examination and medical decision making of this patient, discussed the same with the dictator, and agree with the dictators assessment and plan as written, documented as a scribe. Based on total visit time, I have performed more than 50% of this visit. Patient Condition at Discharge: Stable Plan - Discharge Summary New Discharge Prescriptions: New Dapagliflozin Propanediol [Farxiga] 10 mg PO DAILY tab glipiZIDE [Glucotrol] 2.5 mg PO AC-BID tab Famotidine [Pepcid] 20 mg PO DAILY tab Continue Natural Tears 2 drops BOTH EYES Q12H PRN PRN Reason: Dry Eye(S) Mag Hydrox/Al Hydrox/Simeth [Maalox] 30 ml PO Q6H PRN PRN Reason: Gi Upset bisacodyL [Dulcolax] 10 mg RECTAL DAILY PRN PRN Reason: Constipation Na Phos,M-B/Na Phos,Di-Ba [Fleet Adult] 133 ml RECTAL DAILY PRN PRN Reason: Constipation polyethylene glycoL 3350 [Miralax] 17 gm PO DAILY@0800 Melatonin 5 mg PO HS Melatonin 3 mg PO HS Fruit & Vegetable Daily Cap 1 cap PO DAILY@0700 Atorvastatin [Lipitor] 40 mg PO HS Tamsulosin [Flomax] 0.4 mg PO HS Clopidogrel [Plavix] 75 mg PO DAILY@0800 HYDROcodone/APAP 5-325MG [[place] 5-325] 1 tab PO Q6H PRN #4 tab PRN Reason: Pain Magnesium Hydroxide [Milk of Magnesia Concentrate] 7,200 mg PO DAILY PRN PRN Reason: Constipation guaiFENesin [guaiFENesin Oral Solution] 200 mg PO Q4H PRN PRN Reason: Cough Ipratropium-Albuterol Nebulize [Duoneb 0.5 mg-3 mg/3 ml Soln] 3 ml INHALATION RT-QID PRN PRN Reason: Shortness Of Breath/congestion Acetaminophen [Tylenol 8 Hour] 1,300 mg PO Q4H PRN PRN Reason: general discomfort INSULIN LISPRO (HumaLOG) [humaLOG] See Protocol SQ ACHS INSULIN LISPRO (HumaLOG) [humaLOG] 5 units SQ AC-TID Diclofenac Sodium Gel [Voltaren Gel] 1 applic TOPICAL TID@0800,1600,2100 Sennosides [Senokot] 8.6 mg PO BID@0800,1700 Insulin Detemir (Levemir) [Levemir] 10 units SQ BID@0800,1700 levETIRAcetam [Keppra] 500 mg PO BID@0800,1700 lisinopriL [Zestril] 10 mg PO DAILY@1700 DULoxetine HCL [Cymbalta] 60 mg PO DAILY@0800 Aspirin 81 mg PO DAILY@1700 Gabapentin [Neurontin] 200 mg PO TID@0600,1400,2200 #6 cap Discontinued carvediloL [Coreg] 12.5 mg PO BID@0800,1700 amLODIPine [Norvasc] 5 mg PO DAILY@0800 ALPRAZolam [Xanax] 0.25 mg PO Q8H PRN PRN Reason: Anxiety Pantoprazole [Protonix] 40 mg PO DAILY@0800 Discharge Medication List Acetaminophen [Tylenol 8 Hour] 1,300 mg PO Q4H PRN 04/23/23 [History] Aspirin 81 mg PO DAILY@1700 04/23/23 [History] Atorvastatin [Lipitor] 40 mg PO HS 04/23/23 [History] Clopidogrel [Plavix] 75 mg PO DAILY@0800 04/23/23 [History] DULoxetine HCL [Cymbalta] 60 mg PO DAILY@0800 04/23/23 [History] Diclofenac Sodium Gel [Voltaren Gel] 1 applic TOPICAL TID@0800,1600,2100 04/23/23 [History] Fruit & Vegetable Daily Cap 1 cap PO DAILY@0700 04/23/23 [History] INSULIN LISPRO (HumaLOG) [humaLOG] 5 units SQ AC-TID 04/23/23 [History] INSULIN LISPRO (HumaLOG) [humaLOG] See Protocol SQ ACHS 04/23/23 [History] Insulin Detemir (Levemir) [Levemir] 10 units SQ BID@0800,1700 04/23/23 [History] Ipratropium-Albuterol Nebulize [Duoneb 0.5 mg-3 mg/3 ml Soln] 3 ml INHALATION RT-QID PRN 04/23/23 [History] Mag Hydrox/Al Hydrox/Simeth [Maalox] 30 ml PO Q6H PRN 04/23/23 [History] Magnesium Hydroxide [Milk of Magnesia Concentrate] 7,200 mg PO DAILY PRN [History] Melatonin 3 mg PO HS 04/23/23 [History] Melatonin 5 mg PO HS 04/23/23 [History] Na Phos,M-B/Na Phos,Di-Ba [Fleet Adult] 133 ml RECTAL DAILY PRN 04/23/23 [History] Natural Tears 2 drops BOTH EYES Q12H PRN 04/23/23 [History] Sennosides [Senokot] 8.6 mg PO BID@0800,1700 04/23/23 [History] Tamsulosin [Flomax] 0.4 mg PO HS 04/23/23 [History] bisacodyL [Dulcolax] 10 mg RECTAL DAILY PRN 04/23/23 [History] guaiFENesin [guaiFENesin Oral Solution] 200 mg PO Q4H PRN 04/23/23 [History] levETIRAcetam [Keppra] 500 mg PO BID@0800,1700 04/23/23 [History] lisinopriL [Zestril] 10 mg PO DAILY@1700 04/23/23 [History] polyethylene glycoL 3350 [Miralax] 17 gm PO DAILY@0800 04/23/23 [History] Dapagliflozin Propanediol [Farxiga] 10 mg PO DAILY tab 04/24/23 [Rx] Famotidine [Pepcid] 20 mg PO DAILY tab 04/24/23 [Rx] Gabapentin [Neurontin] 200 mg PO TID@0600,1400,2200 #6 cap 04/24/23 [Rx] HYDROcodone/APAP 5-325MG [[place] 5-325] 1 tab PO Q6H PRN #4 tab 04/24/23 [Rx] glipiZIDE [Glucotrol] 2.5 mg PO AC-BID tab 04/24/23 [Rx] Follow up Appointment(s)/Referral(s): Bridger Castillo MD [Primary Care Provider] - 1-2 days Waqas Genao MD [Medical Doctor] - 1-2 Days Ambulatory/Diagnostic Orders: Basic Metabolic Panel [LAB.AMB] Time Frame: 3 Days, Location: None Selected Complete Blood Count w/diff [LAB.AMB] Time Frame: 3 Days, Location: None Selected Activity/Diet/Wound Care/Special Instructions: Patient is stable for discharge back to [facility] Kidney function normalized and recommend to f.u labs in 2 to 3 days Discharge Disposition: TRANSFER TO SNF/ECF
[2023-04-24 14:55] VITALS: BP 120/77; RESP 19; TEMP 97.8
[2023-04-24 16:04] VITALS: PULSE 61
[2023-04-25] MEDS ORDERED: FAMOTIDINE 20 MG TAB PO SCH (09:00)
== END 2023-04-24 16:50 ==
LOC: EC 07:48 → 6NMEDSUR 09:51
PROVIDERS: ADMIT Hospitalist; ATTEND Hospitalist
DX: I95.9 Hypotension, unspecified (principal); N17.9 Acute kidney failure, unspecified; I69.354 Hemiplegia and hemiparesis following cerebral infarction affecting left non-dominant side; E11.42 Type 2 diabetes mellitus with diabetic polyneuropathy; K76.9 Liver disease, unspecified; I10 Essential (primary) hypertension; N40.1 Benign prostatic hyperplasia with lower urinary tract symptoms; R32 Unspecified urinary incontinence; R00.1 Bradycardia, unspecified; E78.5 Hyperlipidemia, unspecified; F32.A Depression, unspecified; Z79.82 Long term (current) use of aspirin; Z79.02 Long term (current) use of antithrombotics/antiplatelets; Z79.4 Long term (current) use of insulin; Z79.899 Other long term (current) drug therapy; Z98.890 Other specified postprocedural states; Z86.19 Personal history of other infectious and parasitic diseases; Z80.9 Family history of malignant neoplasm, unspecified
CPT/HCPCS: 96361 ×3; 96372 ×2; 96360; 99285; 36415; 93005; 84300; 83930; 82570; 80053; 80048; 83605; 84484; 85025; 85610; 85730; 81001; 83935; 87205; 71046; 76770; 70450; G0378 ×2; J1644 ×2

== ENCOUNTER 2024-03-21 11:12 | Emergency (ER) | payer MEDICARE, OTHER ==
--- NOTE | 2024-03-21 11:24 | ED ---
General Adult HPI - General Chief complaint: Weakness Stated complaint: Lethargy Time Seen by Provider: 03/21/24 11:15 Source: patient, EMS, RN notes reviewed, old records reviewed Mode of arrival: EMS Limitations: no limitations - History of Present Illness Initial comments: This is a 63-year-old male who presents to the emergency department patient re sides in a fdc because of a stroke in July. Patient states there is complete left-sided paralysis. Patient was sent in because he was much more lethargic today than normal. Patient is alert and oriented x 3. Patient states he has no complaints he denies any pain denies any feeling of being tired. Patient states he has not had any fever or chills. Patient denies any nausea vomiting diarrhea. Patient states last night he did have a gummy initially he said he had a bunch of Gummies but then later he said he only had 1. - Related Data Home Medications Medication Instructions Recorded Confirmed Aspirin 81 mg PO DAILY@1700 04/23/23 03/21/24 Atorvastatin [Lipitor] 40 mg PO HS 04/23/23 03/21/24 Clopidogrel [Plavix] 75 mg PO DAILY@0800 04/23/23 03/21/24 Diclofenac Sodium Gel [Voltaren 1% 1 applic TOPICAL TID@0800,1600,2100 04/23/23 03/21/24 Gel] Melatonin 5 mg PO 04/23/23 03/21/24 Sennosides [Senokot] 8.6 mg PO BID@0800,1700 04/23/23 03/21/24 Tamsulosin [Flomax] 0.4 mg PO 04/23/23 03/21/24 guaiFENesin [guaiFENesin Oral 200 mg PO Q4H PRN 04/23/23 03/21/24 Solution] levETIRAcetam [Keppra] 500 mg PO BID@0800,1700 04/23/23 03/21/24 lisinopriL [Zestril] 10 mg PO DAILY@0 04/23/23 03/21/24 ALPRAZolam [Xanax] 0.25 mg PO BID@0800,1700 03/21/24 03/21/24 Acetaminophen Tab [Tylenol] 650 mg PO Q4H PRN 03/21/24 03/21/24 Baclofen 10 mg PO Q12H PRN 03/21/24 03/21/24 Balance Of Nature Fruits And 2 cap PO DAILY@0700 03/21/24 03/21/24 Vegetables Gabapentin [Neurontin] 300 mg PO TID@0800,1400,2200 03/21/24 03/21/24 HYDROcodone/APAP 5-325MG [Lyons 1 tab PO BID PRN 03/21/24 03/21/24 5-325] INSULIN LISPRO (HumaLOG) [humaLOG] See Protocol SQ ACHS 03/21/24 03/21/24 Insulin Glargine [Lantus Vial] 10 unit SQ HS@2130 03/21/24 03/21/24 Magnesium Hydroxide [Milk of 2,400 mg PO DAILY PRN 03/21/24 03/21/24 Magnesia] Morphine Sulfate ER [Ms Contin] 15 mg PO BID@0800,2100 03/21/24 03/21/24 PARoxetine HCL [Paxil] 30 mg PO HS 03/21/24 03/21/24 Polyvinyl Alcohol/Povidone [Clear 1 drop BOTH EYES TID@0800,1200,1700 03/21/24 03/21/24 Eyes Natural Tears Drop] glipiZIDE/METFORMIN HCL 1 tab PO BID@0800,1700 03/21/24 03/21/24 [glipiZIDE/METFORMIN HCL 5-500 mg] polyethylene glycoL 3350 [Miralax] 17 gm PO DAILY@0800 03/21/24 03/21/24 risperiDONE [RisperDAL] 0.5 mg PO HS 03/21/24 03/21/24 Allergies Allergy/AdvReac Type Severity Reaction Status Date / Time No Known Allergies Allergy Verified 03/21/24 11:48 Review of Systems ROS Statement: Those systems with pertinent positive or pertinent negative responses have been documented in the HPI. ROS Other: All systems not noted in ROS Statement are negative. Past Medical History Past Medical History: CVA/TIA, Diabetes Mellitus, Liver Disease Additional Past Medical History / Comment(s): hx. Hep. C History of Any Multi-Drug Resistant Organisms: None Reported Past Surgical History: Orthopedic Surgery, Tonsillectomy Additional Past Surgical History / Comment(s): bone spur removed from shoulder,colonoscopy Past Anesthesia/Blood Transfusion Reactions: No Reported Reaction Smoking Status: Former smoker Past Alcohol Use History: None Reported Past Drug Use History: None Reported - Past Family History Mother Family Medical History: Cancer General Exam - General Exam Comments Initial Comments: GENERAL: Patient is well-developed and well-nourished. Patient is nontoxic and well- hydrated and is in mild distress. ENT: Neck is soft and supple. No significant lymphadenopathy is noted. Oropharynx is clear. Moist mucous membranes. Neck has full range of motion without eliciting any pain. EYES: The sclera were anicteric and conjunctiva were pink and moist. Extraocular movements were intact and pupils were equal round and reactive to light. Eyelids were unremarkable. PULMONARY: Unlabored respirations. Good breath sounds bilaterally. No audible rales rhonchi or wheezing was noted. CARDIOVASCULAR: There is a regular rate and rhythm without any murmurs gallops or rubs. ABDOMEN: Soft and nontender with normal bowel sounds. SKIN: Skin is clear with no lesions or rashes and otherwise unremarkable. NEUROLOGIC: Patient is alert and oriented x3. Cranial nerves II through XII are grossly intact. Complete left-sided paralysis MUSCULOSKELETAL: Normal extremities with adequate strength and full range of motion. No lower extremity swelling or edema. No calf tenderness. LYMPHATICS: No significant lymphadenopathy is noted PSYCHIATRIC: Normal psychiatric evaluation. Limitations: no limitations Course Vital Signs 03/21/24 11:14 Temperature 97.2 F L Pulse Rate 75 Respiratory 18 Rate Blood Pressure 125/83 O2 Sat by Pulse 97 Oximetry Medical Decision Making - Medical Decision Making EKG is interpreted by myself but EKG shows a sinus rhythm at 73 bpm parables 212 QRS is 95 QT interval 370 QTc is 396. Patient's EKG shows no ST segment ovation or depression. Was pt. sent in by a medical professional or institution (, PA, MARKETING SYSTEMS ANALYST, urgent care, hospital, or fdc...) When possible be specific @ -Patient was sent in from the fdc. Did you speak to anyone other than the patient for history (EMS, parent, family, police, friend...)? What history was obtained from this source @ -No Did you review nursing and triage notes (agree or disagree)? Why? @ -I reviewed and agree with nursing and triage notes Were old charts reviewed (outside hosp., previous admission, EMS record, old EKG, old radiological studies, urgent care reports/EKG's, fdc records)? Report findings @ -I compared lab work today from prior visits. Patient's lab work today was unchanged from prior visits. Differential Diagnosis (chest pain, altered mental status, abdominal pain women, abdominal pain men, vaginal bleeding, weakness, fever, dyspnea, syncope, headache, dizziness, GI bleed, back pain, seizure, CVA, palpatations, mental health, musculoskeletal)? @ -Differential Altered Mental Status: Hypoglycemia, DKA, hypercapnia, ETOH, overdose, CO poisoning, trauma, myxedema coma, HTN encephalopathy, infection, encephalitis, psychosis, intercranial hemorrhage, hepatic encephalopathy, meningitis, CVA, this is not meant to be an all-inclusive list EKG interpreted by me (3pts min.). @ -As above X-rays interpreted by me (1pt min.). @ -Chest x-ray shows no acute normality CT interpreted by me (1pt min.). @ -None done U/S interpreted by me (1pt. min.). @ -None done What testing was considered but not performed or refused? (CT, X-rays, U/S, labs)? Why? @ -None What meds were considered but not given or refused? Why? @ -None Did you discuss the management of the patient with other professionals (professionals i.e. , PA, MARKETING SYSTEMS ANALYST, lab, RT, psych nurse, director social welfare, leather goods maker, teacher, special police officer, casework supervisor)? Give summary @ -No Was smoking cessation discussed for >3mins.? @ -No Was critical care preformed (if so, how long)? @ -No Were there social determinants of health that impacted care today? How? (Homelessness, low income, unemployed, alcoholism, drug addiction, transportation, low edu. Level, literacy, decrease access to med. care, [facility] [facility], rehab)? @ -No Was there de-escalation of care discussed even if they declined (Discuss DNR or withdrawal of care, Hospice)? DNR status @ -No What co-morbidities impacted this encounter? (DM, HTN, Smoking, COPD, CAD, C ancer, CVA, ARF, Chemo, Hep., AIDS, mental health diagnosis, sleep apnea, morbid obesity)? @ -None Was patient admitted / discharged? Hospital course, mention meds given and route, prescriptions, significant lab abnormalities, going to OR and other pertinent info. @ -Patient remained asymptomatic and alert and oriented x 3 throughout his stay lab work showed no acute [place] x-ray showed no acute abnormality Undiagnosed new problem with uncertain prognosis? @ -No Drug Therapy requiring intensive monitoring for toxicity (Heparin, Nitro, Insulin, Cardizem)? @ -No Were any procedures done? @ -No Diagnosis/symptom? @ -Marijuana use Acute, or Chronic, or Acute on Chronic? @ -Acute Uncomplicated (without systemic symptoms) or Complicated (systemic symptoms)? @ -Complicated Side effects of treatment? @ -No Exacerbation, Progression, or Severe Exacerbation? @ -No Poses a threat to life or bodily function? How? (Chest pain, [place], [place], pneumonia, PE, COPD, DKA, ARF, appy, cholecystitis, CVA, Diverticulitis, Homicidal, Suicidal, threat to staff... and all critical care pts) @ -No - Lab Data Result diagrams: 03/21/24 11:27 03/21/24 11:27 Lab Results 03/21/24 03/21/24 Range/Units 11:27 11:27 WBC 6.6 (3.8-10.6) k/uL RBC 4.29 L (4.30-5.90) m/uL Hgb 13.7 (13.0-17.5) gm/dL Hct 40.6 (39.0-53.0) % MCV 94.7 (80.0-100.0) fL MCH 32.0 (25.0-35.0) pg MCHC 33.8 (31.0-37.0) g/dL RDW 13.9 (11.5-15.5) % Plt Count 134 L (150-450) k/uL MPV 8.1 Neutrophils % 78 % Lymphocytes % 13 % Monocytes % 4 % Eosinophils % 3 % Basophils % 0 % Neutrophils # 5.1 (1.3-7.7) k/uL Lymphocytes # 0.9 L (1.0-4.8) k/uL Monocytes # 0.3 (0-1.0) k/uL Eosinophils # 0.2 (0-0.7) k/uL Basophils # 0.0 (0-0.2) k/uL Sodium 135 L (137-145) mmol/L Potassium 4.8 (3.5-5.1) mmol/L Chloride 103 (98-107) mmol/L Carbon Dioxide 27 (22-30) mmol/L Anion Gap 5 mmol/L BUN 28 H (9-20) mg/dL Creatinine 1.51 H (0.66-1.25) mg/dL Est GFR (CKD-EPI)AfAm 56 (>60 ml/min/1.73 sqM) Est GFR (CKD-EPI)NonAf 48 (>60 ml/min/1.73 sqM) Glucose 202 H (74-99) mg/dL Calcium 8.4 (8.4-10.2) mg/dL Magnesium 1.6 (1.6-2.3) mg/dL Total Bilirubin 0.7 (0.2-1.3) mg/dL AST 25 (17-59) U/L ALT 21 (4-49) U/L Alkaline Phosphatase 111 (38-126) U/L Total Protein 6.8 (6.3-8.2) g/dL Albumin 3.8 (3.5-5.0) g/dL Disposition Clinical Impression: Cannabis use, unspecified, uncomplicated Disposition: HOME SELF-CARE Condition: Good Is patient prescribed a controlled substance at d/c from ED?: No Referrals: [facility] [Primary Care Provider] - 1-2 days Time of Disposition: 12:24
[2024-03-21 11:29] VITALS: BP 125/83; PULSE 75; RESP 18; TEMP 97.2
[2024-03-21] MEDS: SODIUM CHLORIDE 0.9% 500 ML 500 ML IV STA (11:29)
[2024-03-21 11:50] LABS: ALT 21 U/L (4-49); AST 25 U/L (17-59); African American GFR (CKD) 56 (>60 ml/min/1.73 sqM); Albumin 3.8 g/dL (3.5-5.0); Alkaline Phosphatase 111 U/L (38-126); Anion Gap 5 mmol/L; Blood Urea Nitrogen 28 mg/dL (9-20); Calcium 8.4 mg/dL (8.4-10.2); Carbon Dioxide 27 mmol/L (22-30); Chloride 103 mmol/L (98-107); Glucose 202 mg/dL (74-99); Magnesium 1.6 mg/dL (1.6-2.3); Non-African American GFR(CKD) 48 (>60 ml/min/1.73 sqM); Potassium 4.8 mmol/L (3.5-5.1); Sodium 135 mmol/L (137-145); Total Bilirubin 0.7 mg/dL (0.2-1.3); Total Protein 6.8 g/dL (6.3-8.2)
[2024-03-21 11:57] LABS: Basophils % (A) 0 %; Eosinophils # (A) 0.2 k/uL (0-0.7); Eosinophils % (A) 3 %; HCT 40.6 % (39.0-53.0); HGB 13.7 gm/dL (13.0-17.5); Lymphocytes # (A) 0.9 k/uL (1.0-4.8); Lymphocytes % (A) 13 %; MCHC 33.8 g/dL (31.0-37.0); MCV 94.7 fL (80.0-100.0); Mean Platelet Volume 8.1; Monocytes # (A) 0.3 k/uL (0-1.0); Monocytes % (A) 4 %; Neutrophils # (A) 5.1 k/uL (1.3-7.7); Neutrophils % (A) 78 %; Platelet Count 134 k/uL (150-450); RBC 4.29 m/uL (4.30-5.90); RDW 13.9 % (11.5-15.5); WBC 6.6 k/uL (3.8-10.6)
--- NOTE | 2024-03-21 12:02 | XR ---
EXAMINATION TYPE: XR chest 2V DATE OF EXAM: 03/21/2024 COMPARISON: 04/23/2023 HISTORY: 63-year-old male with weakness TECHNIQUE: AP and lateral views FINDINGS: Low lung volumes and crowded vascular markings. Hypoventilatory changes accentuate the heart size, li alexander upper limits of normal. No shilpa consolidation or pleural effusion. IMPRESSION: Limited by portable technique and hypoventilatory changes. No definite acute process.
== END 2024-03-21 15:06 | disposition home or self-care (01) ==
LOC: EC 11:12
DX: F12.90 Cannabis use, unspecified, uncomplicated (principal); Z87.891 Personal history of nicotine dependence
CPT/HCPCS: 36415; 71046; 80053; 83735; 85025; 93005; 96360; 99285